=== PATIENT | female | born 1960 | race African-American/Black ===

== ENCOUNTER 2020-04-26 08:16 | Emergency (ER) | payer OTHER, BC ==
[~2020-04-26] VITALS: Ht 157.5 cm; Wt 190.0 kg
[2020-04-26 09:02] VITALS: BP 188/88
[2020-04-26] MEDS ORDERED: ORPHENADRINE CITRATE 60 MG/2 ML VIAL. IM ONE (09:30)
[2020-04-26] MEDS ORDERED: KETOROLAC 60 MG/2 ML VIAL. IM ONE (09:30)
--- NOTE | 2020-04-26 10:03 | RAD ---
LEFT SHOULDER , 3 VIEWS Clinical Indication: Trauma Comparison: None. Findings: There is no acute fracture or dislocation. There are moderate degenerative changes. The visualized lung is clear. There is no evidence of a displaced rib fracture. There is no soft tissue abnormality. IMPRESSION: No acute fracture or dislocation. Electronically signed by: Robb Wynn MD (04/26/2020 10:00 AM) [id number]
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
[2020-04-26] MEDS ORDERED: NAPR-514 PO (11:05)
[2020-04-26] MEDS ORDERED: METH-38 PO (11:05)
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
== END 2020-04-26 11:14 | disposition home or self-care (01) ==
LOC: ER 08:16
DX: S16.1XXA Strain of muscle, fascia and tendon at neck level, initial encounter (principal); S43.492A Other sprain of left shoulder joint, initial encounter; S00.83XA Contusion of other part of head, initial encounter; E78.00 Pure hypercholesterolemia, unspecified; I10 Essential (primary) hypertension; F17.200 Nicotine dependence, unspecified, uncomplicated; Z79.899 Other long term (current) drug therapy; V49.9XXA Car occupant (driver) (passenger) injured in unspecified traffic accident, initial encounter; Y93.89 Activity, other specified; Y92.413 State road as the place of occurrence of the external cause; Y99.8 Other external cause status
CPT/HCPCS: 70450; 72125; 73030; 96372; 99285; J1885; J2360